=== PATIENT | male | born 1955 | race Caucasian/White ===

== ENCOUNTER 2018-03-15 10:20 | Emergency (ER) | payer MEDICAID ==
[2018-03-15] MEDS ORDERED: GABA-549 PO (10:29)
[2018-03-15] MEDS ORDERED: ACETAMINOPHEN 500 MG TAB PO ONE (10:40)
[2018-03-15] MEDS ORDERED: KETOROLAC 15 MG/ML VIAL IVP ONE (10:40)
--- NOTE | 2018-03-15 10:50 | ER Report ---
History and Physical Time Seen By MD: 10:27 Hx. of Stated Complaint: PATIENT REPORTS A SUDDEN ONSETOF LEFT LOWER BACK PAIN AT ABOUT 0230 THIS MORNING. HE HAS A HISTORY OF BACK PAIN BUT HASN'T HAD ANY PROBLEMS FOR A WHILE HPI/ROS CHIEF COMPLAINT: back pain HISTORY OF PRESENT ILLNESS: Patient presents with left-sided back pain radiating down left leg. He states pain has been going on approximately one week but was worse overnight. Patient denies new injury however does state he was moving a refrigerator yesterday. Patient has history of multiple lumbar back surgeries. He denies new weakness, midline pain, injuries, fevers. He denies numbness around the groin area. Patient states pain is currently 4 out of 10. He received Ativan and fentanyl prehospital with significant improvement in pain. Patient has been taken only gabapentin at home. 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 REVIEW OF SYSTEMS: Constitutional: No fever, no chills. Eyes: No discharge. ENT: No sore throat. Cardiovascular: No chest pain, no palpitations. Respiratory: No cough, no shortness of breath. Gastrointestinal: No abdominal pain, no vomiting. Genitourinary: No hematuria. Musculoskeletal: above Skin: No rashes. Neurological: No headache. Allergies: Coded Allergies: Penicillins (Verified Allergy, Severe, 03/15/18) Home Meds Reported Medications Gabapentin (GABAPENTIN) 300 Mg Capsule, 300 MG PO QHS, CAPSULE 03/15/18 Reviewed Nurses Notes: Yes Hx Substance Use Disorder: No Hx Alcohol Use: No Constitutional Vital Sign - Last 24 Hours 03/15/18 03/15/18 03/15/18 03/15/18 10:20 10:22 10:25 10:30 Temp 97.8 Pulse 75 78 Resp 24 B/P (MAP) 85/63 128/78 (95) 120/78 (92) Pulse Ox 89 91 O2 Delivery Room Air 03/15/18 03/15/18 03/15/18 10:50 11:30 12:00 Pulse 58 B/P (MAP) 114/58 (76) 112/67 (82) Pulse Ox 96 Physical Exam General Appearance: The patient is alert, has no immediate need for airway protection and no signs of toxicity. Eyes: Pupils equal and round no pallor or injection. ENT, Mouth: Mucous membranes are moist. Respiratory: There are no retractions, lungs are clear to auscultation. Cardiovascular: Regular rate and rhythm. Gastrointestinal: Abdomen is soft and non tender, no masses, bowel sounds normal. Neurological: alert, oriented, moves all extremities Skin: Warm and dry, no rashes. Musculoskeletal: Neck is supple non tender. No midline tenderness. Old surgical scar noted and intact. Left Spinal lumbar tenderness. Left sciatic tenderness. Positive straight leg raise on left. Reflexes 1+ on left. 5 out of 5 muscle strength throughout extremities. L5 sensation intact. Perirectal sensation intact. [ ] DIFFERENTIAL DIAGNOSIS: After history and physical exam differential diagnosis was considered for back pain including but not limited to muscular pain, herniated disc, spine fracture, intra-abdominal causes and urinary tract infection,. cauda equina Medical Decision Making ED Course/Re-evaluation ED Course Patient presents with back pain in face of history of prior lumbar surgeries. He denies new injury, and ED evaluation is not consistent with cauda equina syndrome. Findings are consistent with sciatica. Patient does have some, though not complete response to pain. Of note on x-ray are age indeterminate mild compression fractures of T11 and T12. Patient does not have midline tenderness at this area and given no recent trauma, I do not think that this is the source of his pain today. 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 At reevaluation, the patient's pain remains 4 out of 10, however he was able to ambulate without weakness. I spoke with patient's brother and and family member is going to come and pick him up so that he is not driving his truck. Patient is aware that he may not drive truck on muscle relaxants or pain medications. Patient notes that he does have a prescription a muscle relaxant as well as pain medications. I recommend he take ibuprofen and Tylenol in addition to taking above only as needed. We'll discharge with strict return precautions. Decision to Disposition Date: Mar 15, 2018 Decision to Disposition Time: 12:23 Depart Departure Latest Vital Signs Vital Signs Date Time Temp Pulse Resp B/P (MAP) Pulse Ox O2 Delivery O2 Flow Rate FiO2 03/15/18 12:00 112/67 (82) 03/15/18 10:50 58 96 03/15/18 10:22 97.8 24 Room Air Impression: Primary Impression: Sciatica of left side Ruled Out: Thoracic compression fracture Condition: Improved Disposition: HOME OR SELF-CARE Patient Instructions: Sciatica (ED) Additional Instructions: As we discussed, it is imperative U do not put herself or others at risk by driving her truck while taking any muscle relaxants or prescription pain medications. You may not drive a truck for the next 6 hours after emergency department discharge. I recommend you stay in a motel or hotel tonight for rest. I recommend that you take 600 mg of ibuprofen every 8 hours, 1000 mg of acetaminophen every 8 hours, and muscle relaxants and prescription pain medications only as needed. Please return if you have new weakness, uncontrolled symptoms, unable to control urination, or any other concerns. SY NORTON MD Mar 15, 2018 10:50
[2018-03-15] MEDS ORDERED: DIAZEPAM 5 MG TAB PO ONE (11:25)
--- NOTE | 2018-03-15 11:53 | RADIOLOGY IMAGING REPORT ---
FACILITY: [facility] - [place] PATIENT NAME: Dereck Reilly : 1955 MR: [id number] V: [id number] EXAM DATE: ORDERING PHYSICIAN: SY NORTON TECHNOLOGIST: Location: [facility] [place] Patient: Dereck Reilly : 1955 Visit/Account:[id number] Date of Sevice: 03/15/2018 LUMBAR SPINE 2 OR 3 VIEW INDICATION: Low back pain. COMPARISON: None available. FINDINGS: AP and lateral views of the lumbar spine. Bilateral pedicle screws and interbody cage at L4-L5. No evidence of hardware failure. Probable solid interbody fusion at L4-L5. Mild anterior wedging of the T11 and T12 vertebral bodies, age-indeterminate. Otherwise normal verteb ral body height. Multilevel degenerative disc disease and facet hypertrophy. Normal alignment. The included soft tissues are unremarkable. IMPRESSION: 1. Mild anterior wedging of the T11 and T12 vertebral bodies, age-indeterminate. 2. Otherwise normal vertebral body height. 3. Multilevel degenerative disc disease and facet hypertrophy with fusion of L4-L5. No evidence of cruz rdware failure. Probable solid interbody fusion at L4-L5. Report Dictated By: Joey Alfaro MD at 03/15/2018 11:46 AM Report E-Signed By: Joey Alfaro MD at 03/15/2018 11:48 AM WSN:[id number]
[2018-03-15 12:00] VITALS: BP 112/67
== END 2018-03-15 12:43 | disposition home or self-care (01) ==
LOC: ER 10:31
DX: M54.32 Sciatica, left side (principal)
CPT/HCPCS: 72100; 96374; 99284; J1885

== ENCOUNTER → 2018-03-15 | Outpatient (CLI) | payer MEDICAID ==
[~2018-03-15] MED LIST: GABA-549 PO
== END ==
LOC: AMB 09:44
PROVIDERS: ATTEND Nurse Practitioner
DX: M54.5 Low back pain (principal); M79.605 Pain in left leg
CPT/HCPCS: A0425; A0427